=== PATIENT | female | born 1995 | race Two or more races ===

== ENCOUNTER 2017-04-30 12:17 | Emergency (ER) | payer SELFPAY ==
[~2017-04-30] VITALS: Ht 167.6 cm; Wt 61.4 kg
[2017-04-30] MEDS ORDERED: IBUPROFEN 800 MG TABLET PO ONE (12:45)
[2017-04-30 13:36] VITALS: BP 125/65
[2017-04-30 13:54] LABS: INFLUENZA TYPE B NEGATIVE FOR TYPE B (NEGATIVE)
== END 2017-04-30 14:17 | disposition home or self-care (01) ==
LOC: EMS 12:18
DX: B34.9 Viral infection, unspecified (principal); R51 Headache; F32.9 Major depressive disorder, single episode, unspecified
CPT/HCPCS: 71020; 81025; 87430; 87804; 99285

== ENCOUNTER 2017-08-11 22:27 | Emergency (ER) | payer OTHER ==
[~2017-08-11] VITALS: Ht 167.6 cm; Wt 59.1 kg
[2017-08-11] MEDS ORDERED: RISP1 PO (22:56)
[2017-08-11 23:47] VITALS: BP 111/71
== END 2017-08-12 00:04 | disposition home or self-care (01) ==
LOC: EMS 22:28
DX: Z00.8 Encounter for other general examination (principal); F32.9 Major depressive disorder, single episode, unspecified; F20.9 Schizophrenia, unspecified
CPT/HCPCS: 99285

== ENCOUNTER 2018-05-20 20:38 | Inpatient (IN) | payer MEDICAID, OTHER ==
[~2018-05-20] VITALS: Ht 167.6 cm; Wt 61.3 kg
[~2018-05-20 20:38] MED LIST: RISP1 PO
[2018-05-21] MEDS ORDERED: HALOPERIDOL 5 MG TABLET PO ONE (01:00)
[2018-05-21] MEDS ORDERED: LORazepam 1 MG TABLET PO ONE (01:00)
[2018-05-21] MEDS ORDERED: DiphenhydrAMINE HCL 25 MG/10 ML ELIXIR UDCUP PO ONE (01:00)
[2018-05-21] MEDS ORDERED: LORazepam 2 MG TABLET PO PRN ×2 (01:15→13:45)
[2018-05-21] MEDS ORDERED: ZOLPIDEM TARTRATE 10 MG TABLET PO PRN ×2 (01:15→13:45)
[2018-05-21] MEDS ORDERED: HALOPERIDOL 5 MG TABLET PO PRN (01:15)
[2018-05-21] MEDS ORDERED: MAGNESIUM HYDROXIDE SUSPENSION 30 ML UDCUP PO PRN (13:45)
[2018-05-21] MEDS ORDERED: PALIPERIDONE PALMITATE 234 MG/1.5 ML SYRINGE IM ONE (13:45)
[2018-05-21] MEDS ORDERED: MAG HYDROX/AL HYDROX/SIMETH ES 30 ML SUSPENSION UDCUP PO PRN (13:45)
[2018-05-21] MEDS ORDERED: PALIPERIDONE 1.5 MG ER TABLET PO PRN (13:45)
[2018-05-21] MEDS ORDERED: TUBERCULIN, PURIFIED PROTEIN DERIVATIVE 5 TU/0.1 ML SYG ID ONE (13:45)
[2018-05-21] MEDS ORDERED: OLANZapine 5 MG RAPDIS TABLET PO PRN (13:45)
[2018-05-21] MEDS ORDERED: LOPERAMIDE HCL 2 MG CAPSULE PO PRN (13:45)
[2018-05-21] MEDS ORDERED: HydrOXYzine PAMOATE 50 MG CAPSULE PO PRN (13:45)
[2018-05-21] MEDS ORDERED: GuaiFENesin/D-METHORPHAN [SUGAR-FREE] 200-20MG/10 ML SYRUP UDCUP PO PRN (13:45)
[2018-05-21] MEDS ORDERED: PROMETHAZINE HCL 25 MG TABLET PO PRN (13:45)
[2018-05-21] MEDS ORDERED: ACETAMINOPHEN 325 MG TABLET PO PRN (13:45)
[2018-05-21 17:41] VITALS: BP 100/69
[2018-05-21] MEDS ORDERED: OLANZapine 5 MG RAPDIS TABLET PO SCH (21:00)
[2018-05-21] MEDS ORDERED: PALIPERIDONE 3 MG ER TABLET PO SCH (21:00)
[2018-05-21] MEDS: THIAMINE HCL 100 MG TABLET PO SCH (21:55)
[2018-05-22 05:41] VITALS: BP 110/60
[2018-05-22 08:21] VITALS: BP 110/69
[2018-05-22] MEDS: THIAMINE HCL 100 MG TABLET PO SCH ×2 (09:00→17:00)
[2018-05-22] MEDS: FOLIC ACID 1 MG TABLET PO SCH (09:00)
[2018-05-22] MEDS: MULTIVITAMINS WITH MINERALS, THERAPEUTIC TABLET PO SCH (09:00)
[2018-05-22 17:15] VITALS: BP 101/64
[2018-05-23 05:47] VITALS: BP 108/72
[2018-05-23 08:22] VITALS: BP 106/70
[2018-05-23] MEDS: MULTIVITAMINS WITH MINERALS, THERAPEUTIC TABLET PO SCH (09:25)
[2018-05-23] MEDS: FOLIC ACID 1 MG TABLET PO SCH (09:25)
[2018-05-23] MEDS: THIAMINE HCL 100 MG TABLET PO SCH ×2 (09:25→17:14)
[2018-05-23 17:07] VITALS: BP 110/65
[2018-05-24 08:02] VITALS: BP 119/60
[2018-05-24 08:45] VITALS: BP 106/62
[2018-05-24] MEDS ORDERED: DiphenhydrAMINE HCL 50 MG/ML VIAL IM ONE (08:45)
[2018-05-24] MEDS: MULTIVITAMINS WITH MINERALS, THERAPEUTIC TABLET PO SCH (09:00)
[2018-05-24] MEDS: THIAMINE HCL 100 MG TABLET PO SCH ×2 (09:00→18:12)
[2018-05-24] MEDS: FOLIC ACID 1 MG TABLET PO SCH (09:00)
[2018-05-24 09:02] VITALS: BP 109/66
[2018-05-24 16:05] VITALS: BP 100/61
[2018-05-25 05:36] VITALS: BP 107/65
[2018-05-25 07:55] LABS: BASOPHILS % (AUTO) 0.3 % (0.0-2.0); EOSINOPHILS % (AUTO) 0.2 % (1.0-6.0); HEMATOCRIT 36.5 % (36-46); HEMOGLOBIN 12.2 g/dL (12.0-16.0); LYMPHOCYTES # (AUTO) 1.7 K/uL (1.0-4.8); LYMPHOCYTES % (AUTO) 13.3 % (22.0-44.0); MEAN CORPUSCULAR HEMOGLOBIN 27.3 pg (26.0-34.0); MEAN CORPUSCULAR HGB CONC 33.4 G/dL (31.0-37.0); MEAN CORPUSCULAR VOLUME 82 fL (80-100); MONOCYTES # (AUTO) 1.2 K/uL (0.1-1.0); MONOCYTES % (AUTO) 9.3 % (2.0-9.0); NEUTROPHILS % (AUTO) 76.9 % (40.0-70.0); PLATELET COUNT (AUTO) 265 K/uL (150-450); RED BLOOD CELL COUNT(AUTO) 4.46 MIL/uL (4.00-5.20)
[2018-05-25 08:08] LABS: HEMOGLOBIN A1C 5.3 % (4.5-6.2)
[2018-05-25] MEDS: THIAMINE HCL 100 MG TABLET PO SCH ×2 (08:22→16:44)
[2018-05-25] MEDS: MULTIVITAMINS WITH MINERALS, THERAPEUTIC TABLET PO SCH (08:22)
[2018-05-25] MEDS: FOLIC ACID 1 MG TABLET PO SCH (08:22)
[2018-05-25 08:35] LABS: ALANINE AMINOTRANSFERASE 29 U/L (12-78); ALBUMIN 3.3 g/dL (3.4-5.0); ALKALINE PHOSPHATASE 86 U/L (46-116); ANION GAP 4 mmol/L (8-16); ASPARTATE AMINOTRANSFERASE 20 U/L (15-37); BILIRUBIN,TOTAL 0.4 mg/dL (0.1-1.0); CALCIUM, TOTAL 8.6 mg/dL (8.8-10.5); CARBON DIOXIDE 30 mmol/L (22-29); CHLORIDE 106 mmol/L (98-107); CHOL/HDL RATIO 2.1 (3.9-5.7); CHOLESTEROL 144 mg/dL (131-200); CREATININE 0.45 mg/dL (0.60-1.30); FREE T4 (FREE THYROXINE) 0.78 ng/dL (0.76-1.46); GLOMERULAR FILTR. RATE CALC > 60 mL/min (>60); GLUCOSE,RANDOM 96 mg/dL (70-110); HCG,QUANTITATIVE < 1 mIU/mL (0-6); HDL CHOLESTEROL 70 mg/dL (40-60); LDL CHOL (CALC.) 69 mg/dL (0-130); POTASSIUM 3.8 mmol/L (3.5-5.1); SODIUM SERUM 140 mmol/L (136-145); THYROID STIMULATING HORMONE 0.57 uIU/mL (0.36-3.74); TOTAL PROTEIN, SERUM 6.8 g/dL (6.4-8.2); TRIGLYCERIDES 27 mg/dL (15-150); UREA NITROGEN, BLOOD 12 mg/dL (7-18)
[2018-05-25 08:39] VITALS: BP 110/60
[2018-05-25] MEDS ORDERED: PALIPERIDONE PALMITATE 156 MG/ML SYRINGE IM ONE (09:00)
[2018-05-25 16:24] VITALS: BP 103/60
[2018-05-26 00:39] VITALS: BP 110/68
[2018-05-26] MEDS: FOLIC ACID 1 MG TABLET PO SCH (08:23)
[2018-05-26] MEDS: THIAMINE HCL 100 MG TABLET PO SCH ×2 (08:23→16:35)
[2018-05-26] MEDS: MULTIVITAMINS WITH MINERALS, THERAPEUTIC TABLET PO SCH (08:23)
[2018-05-26] MEDS: RisperiDONE 0.5 MG TABLET PO SCH ×2 (08:23→16:35)
[2018-05-26 08:26] VITALS: BP 113/90
[2018-05-26 17:34] VITALS: BP 103/68
[2018-05-27 06:13] VITALS: BP 104/72
[2018-05-27 08:00] VITALS: BP 126/76
[2018-05-27] MEDS: THIAMINE HCL 100 MG TABLET PO SCH ×2 (08:28→16:36)
[2018-05-27] MEDS: MULTIVITAMINS WITH MINERALS, THERAPEUTIC TABLET PO SCH (08:28)
[2018-05-27] MEDS: FOLIC ACID 1 MG TABLET PO SCH (08:28)
[2018-05-27] MEDS: RisperiDONE 0.5 MG TABLET PO SCH (08:28)
[2018-05-27 16:32] VITALS: BP 107/54
[2018-05-27] MEDS: RisperiDONE 1 MG TABLET PO SCH (16:36)
[2018-05-28 06:11] VITALS: BP 118/69
[2018-05-28] MEDS: MULTIVITAMINS WITH MINERALS, THERAPEUTIC TABLET PO SCH (08:59)
[2018-05-28] MEDS: THIAMINE HCL 100 MG TABLET PO SCH (08:59)
[2018-05-28] MEDS: RisperiDONE 1 MG TABLET PO SCH ×2 (08:59→14:40)
[2018-05-28] MEDS: FOLIC ACID 1 MG TABLET PO SCH (08:59)
[2018-05-28 09:14] VITALS: BP 109/61
[2018-05-28] MEDS ORDERED: RISP1 PO (15:35)
[2018-05-28 16:27] VITALS: BP 124/75
== END 2018-05-28 18:50 | disposition home or self-care (01) | DRG 750 ==
LOC: EMS 20:38 → B3A 05-21 14:49
PROVIDERS: ADMIT Psychiatry & Neurology Psychiatry; ATTEND Psychiatry & Neurology Psychiatry
DX: F25.1 Schizoaffective disorder, depressive type (principal); R45.851 Suicidal ideations; Z59.0 Homelessness; D64.9 Anemia, unspecified; F43.10 Post-traumatic stress disorder, unspecified; Z91.19 Patient's noncompliance with other medical treatment and regimen
CPT/HCPCS: 80074; 83036; 83735; 84439; 84443; 86592; 86804; 90686; J1200

== ENCOUNTER 2018-06-06 05:28 | Inpatient (IN) | payer MEDICAID, OTHER ==
[~2018-06-06] VITALS: Ht 167.6 cm; Wt 74.4 kg
[2018-06-06 08:47] LABS: AMPHET/METH SCREEN,URINE NEGATIVE (NEGATIVE); BARBITURATE SCREEN, URINE NEGATIVE (NEGATIVE); BENZODIAZEPINES SCREEN,URINE NEGATIVE (NEGATIVE); CANNABINOID SCREEN,URINE NEGATIVE (NEGATIVE); COCAINE SCREEN,URINE NEGATIVE (NEGATIVE); METHADONE SCREEN, URINE NEGATIVE (NEGATIVE); OPIATE SCREEN,URINE NEGATIVE (NEGATIVE); PHENCYCLIDINE SCREEN,URINE NEGATIVE (NEGATIVE)
[2018-06-06 13:37] VITALS: BP 130/71
[2018-06-06] MEDS: OLANZapine 10 MG RAPDIS TABLET PO SCH (14:08)
[2018-06-06] MEDS ORDERED: ALBUTEROL SULFATE HFA 90 MCG/PUFF 8 GM INHALER IH PRN (14:45)
[2018-06-06] MEDS ORDERED: NICOTINE 14 MG/24 HOUR PATCH TD PRN (14:45)
[2018-06-06] MEDS ORDERED: DOCUSATE SODIUM 100 MG CAPSULE PO PRN (14:45)
[2018-06-06] MEDS ORDERED: ONDANSETRON HCL 4 MG TABLET PO PRN (14:45)
[2018-06-06] MEDS ORDERED: IBUPROFEN 400 MG TABLET PO PRN (14:45)
[2018-06-06] MEDS ORDERED: PETROLATUM,WHITE 28 GM JELLY TP PRN (14:45)
[2018-06-06] MEDS ORDERED: MAGNESIUM HYDROXIDE SUSPENSION 30 ML UDCUP PO PRN (14:45)
[2018-06-06] MEDS ORDERED: MAG HYDROX/AL HYDROX/SIMETH ES 30 ML SUSPENSION UDCUP PO PRN (14:45)
[2018-06-06] MEDS ORDERED: GuaiFENesin/D-METHORPHAN [SUGAR-FREE] 200-20MG/10 ML SYRUP UDCUP PO PRN (14:45)
[2018-06-06] MEDS ORDERED: LOPERAMIDE HCL 2 MG CAPSULE PO PRN (14:45)
[2018-06-06] MEDS ORDERED: CloNIDine HCL 0.1 MG TABLET PO PRN (14:45)
[2018-06-06 17:43] VITALS: BP 102/63
[2018-06-07] MEDS: OLANZapine 10 MG RAPDIS TABLET PO SCH (08:01)
[2018-06-07] MEDS ORDERED: LORazepam 2 MG/ML VIAL ONE (09:05)
[2018-06-07] MEDS ORDERED: HALOPERIDOL LACTATE 5 MG/ML VIAL ONE (09:05)
[2018-06-07] MEDS ORDERED: DiphenhydrAMINE HCL 50 MG/ML VIAL ONE (09:05)
[2018-06-07] MEDS ORDERED: HALOPERIDOL LACTATE 5 MG/ML VIAL IM ONE (09:15)
[2018-06-07] MEDS ORDERED: LORazepam 2 MG/ML VIAL IM ONE (09:15)
[2018-06-07] MEDS ORDERED: DiphenhydrAMINE HCL 50 MG/ML VIAL IM ONE (09:15)
[2018-06-07 09:19] VITALS: BP 109/69
[2018-06-07 19:25] VITALS: BP 113/72
[2018-06-08] MEDS: OLANZapine 10 MG RAPDIS TABLET PO SCH (09:45)
[2018-06-08 10:32] VITALS: BP 105/56
[2018-06-08 19:41] VITALS: BP 110/70
[2018-06-09 08:00] VITALS: BP 118/59
[2018-06-09] MEDS: OLANZapine 10 MG RAPDIS TABLET PO SCH (08:38)
[2018-06-09] MEDS: LORazepam 2 MG TABLET PO PRN (17:07)
[2018-06-09] MEDS: HALOPERIDOL 5 MG TABLET PO PRN (17:07)
[2018-06-09 20:51] VITALS: BP 124/68
[2018-06-10] MEDS: LORazepam 2 MG TABLET PO PRN (07:47)
[2018-06-10] MEDS: HALOPERIDOL 5 MG TABLET PO PRN (07:47)
[2018-06-10] MEDS: OLANZapine 10 MG RAPDIS TABLET PO SCH (07:47)
[2018-06-10 09:13] VITALS: BP 104/78
[2018-06-10 19:18] VITALS: BP 100/57
[2018-06-11] MEDS: HALOPERIDOL 5 MG TABLET PO PRN ×3 (02:46→14:47)
[2018-06-11 03:00] VITALS: BP 106/64
[2018-06-11 08:00] VITALS: BP 116/57
[2018-06-11] MEDS: LORazepam 2 MG TABLET PO PRN ×2 (08:51→14:47)
[2018-06-11] MEDS: OLANZapine 10 MG RAPDIS TABLET PO SCH (08:51)
[2018-06-11] MEDS: ACETAMINOPHEN 325 MG TABLET PO PRN ×2 (14:39→14:48)
[2018-06-12] MEDS: LORazepam 2 MG TABLET PO PRN ×3 (02:47→13:07)
[2018-06-12] MEDS: ZOLPIDEM TARTRATE 10 MG TABLET PO PRN (02:47)
[2018-06-12 02:50] VITALS: BP 127/80
[2018-06-12 08:00] VITALS: BP 130/75
[2018-06-12] MEDS: HALOPERIDOL 5 MG TABLET PO PRN (08:24)
[2018-06-12] MEDS: OLANZapine 10 MG RAPDIS TABLET PO SCH ×3 (08:24→16:27)
[2018-06-13] MEDS: OLANZapine 10 MG RAPDIS TABLET PO SCH ×2 (08:30→16:12)
[2018-06-13 09:00] VITALS: BP 116/71
[2018-06-14 08:28] VITALS: BP 142/81
[2018-06-14] MEDS: HALOPERIDOL 5 MG TABLET PO PRN (08:58)
[2018-06-14] MEDS: OLANZapine 10 MG RAPDIS TABLET PO SCH ×2 (08:58→16:24)
[2018-06-14] MEDS: LORazepam 2 MG TABLET PO PRN (08:58)
[2018-06-15] MEDS: OLANZapine 10 MG RAPDIS TABLET PO SCH ×2 (08:10→16:36)
[2018-06-15] MEDS: LORazepam 2 MG TABLET PO PRN (08:10)
[2018-06-15 08:38] VITALS: BP 136/80
[2018-06-15 13:57] VITALS: BP 135/76
[2018-06-15] MEDS ORDERED: BENZOCAINE 10% 7 GM GEL TP PRN (14:30)
[2018-06-15 16:58] VITALS: BP 107/71
[2018-06-16] MEDS: OLANZapine 10 MG RAPDIS TABLET PO SCH ×2 (08:59→16:31)
[2018-06-16 09:20] VITALS: BP 108/58
[2018-06-17] MEDS: LORazepam 2 MG TABLET PO PRN (07:51)
[2018-06-17] MEDS: OLANZapine 10 MG RAPDIS TABLET PO SCH ×2 (07:51→16:13)
[2018-06-17 09:25] VITALS: BP 112/70
[2018-06-18 04:55] VITALS: BP 101/79
[2018-06-18] MEDS: OLANZapine 10 MG RAPDIS TABLET PO SCH (08:59)
[2018-06-18 09:00] VITALS: BP 141/71
[2018-06-18 17:13] VITALS: BP 109/67
[2018-06-18] MEDS: OLANZapine 10 MG TABLET PO SCH (20:29)
[2018-06-19] MEDS: LORazepam 2 MG TABLET PO PRN ×2 (00:29→08:00)
[2018-06-19] MEDS: ZOLPIDEM TARTRATE 10 MG TABLET PO PRN (00:29)
[2018-06-19] MEDS: OLANZapine 10 MG TABLET PO SCH ×2 (08:00→20:41)
[2018-06-19 11:01] VITALS: BP 108/66
[2018-06-19 17:26] VITALS: BP 104/80
[2018-06-20] MEDS: LORazepam 2 MG TABLET PO PRN ×2 (08:03→13:02)
[2018-06-20] MEDS: OLANZapine 10 MG TABLET PO SCH ×2 (08:03→21:07)
[2018-06-20 08:37] VITALS: BP 140/81
[2018-06-20] MEDS: HALOPERIDOL 5 MG TABLET PO PRN (13:02)
[2018-06-20] MEDS: FLUoxetine HCL 10 MG CAPSULE PO SCH (14:32)
[2018-06-20 16:13] VITALS: BP 134/78
[2018-06-21 08:00] VITALS: BP 132/66
[2018-06-21] MEDS: OLANZapine 10 MG TABLET PO SCH ×2 (08:03→20:13)
[2018-06-21] MEDS: FLUoxetine HCL 10 MG CAPSULE PO SCH (08:03)
[2018-06-21] MEDS: LORazepam 2 MG TABLET PO PRN (08:03)
[2018-06-21 19:04] VITALS: BP 131/74
[2018-06-22] MEDS: OLANZapine 10 MG TABLET PO SCH ×2 (08:15→20:17)
[2018-06-22] MEDS: FLUoxetine HCL 10 MG CAPSULE PO SCH (08:15)
[2018-06-22 09:00] VITALS: BP 115/97
[2018-06-22 17:24] VITALS: BP 102/63
[2018-06-23] MEDS: OLANZapine 10 MG TABLET PO SCH ×2 (08:53→20:13)
[2018-06-23] MEDS: FLUoxetine HCL 10 MG CAPSULE PO SCH (08:54)
[2018-06-23 09:00] VITALS: BP 123/59
[2018-06-23 17:35] VITALS: BP 103/59
[2018-06-24] MEDS: FLUoxetine HCL 10 MG CAPSULE PO SCH (08:05)
[2018-06-24] MEDS: OLANZapine 10 MG TABLET PO SCH ×2 (08:05→20:26)
[2018-06-24 10:03] VITALS: BP 121/82
[2018-06-24 16:57] VITALS: BP 103/62
[2018-06-25 08:00] VITALS: BP 115/67
[2018-06-25] MEDS: OLANZapine 10 MG TABLET PO SCH ×2 (08:38→20:28)
[2018-06-25] MEDS: FLUoxetine HCL 10 MG CAPSULE PO SCH (08:38)
[2018-06-25] MEDS ORDERED: TUBERCULIN, PURIFIED PROTEIN DERIVATIVE 5 TU/0.1 ML SYRINGE ID ONE (13:30)
[2018-06-26 08:00] VITALS: BP 101/67
[2018-06-26] MEDS: FLUoxetine HCL 10 MG CAPSULE PO SCH (08:29)
[2018-06-26] MEDS: OLANZapine 10 MG TABLET PO SCH ×2 (08:29→20:22)
[2018-06-27 08:00] VITALS: BP 119/78
[2018-06-27] MEDS: FLUoxetine HCL 10 MG CAPSULE PO SCH (08:24)
[2018-06-27] MEDS: OLANZapine 10 MG TABLET PO SCH ×2 (08:24→20:18)
[2018-06-28 08:00] VITALS: BP 113/75
[2018-06-28] MEDS: FLUoxetine HCL 10 MG CAPSULE PO SCH (11:41)
[2018-06-28] MEDS: OLANZapine 10 MG TABLET PO SCH ×2 (11:42→20:05)
[2018-06-28 18:26] VITALS: BP 120/81
[2018-06-29] MEDS: FLUoxetine HCL 10 MG CAPSULE PO SCH (08:37)
[2018-06-29] MEDS: OLANZapine 10 MG TABLET PO SCH ×2 (08:37→21:13)
[2018-06-29 10:01] VITALS: BP 120/87
[2018-06-29 18:02] VITALS: BP 118/67
[2018-06-30 06:24] VITALS: BP 110/71
[2018-06-30 09:05] VITALS: BP 112/81
[2018-06-30] MEDS: FLUoxetine HCL 10 MG CAPSULE PO SCH (10:04)
[2018-06-30] MEDS: OLANZapine 10 MG TABLET PO SCH ×2 (10:06→20:45)
[2018-06-30 17:04] VITALS: BP 129/65
[2018-07-01 08:00] VITALS: BP 125/79
[2018-07-01] MEDS: OLANZapine 10 MG TABLET PO SCH ×2 (09:11→20:35)
[2018-07-01] MEDS: FLUoxetine HCL 10 MG CAPSULE PO SCH (09:11)
[2018-07-01 19:58] VITALS: BP 123/83
[2018-07-02 08:02] VITALS: BP 117/76
[2018-07-02] MEDS: OLANZapine 10 MG TABLET PO SCH ×2 (09:17→21:21)
[2018-07-02] MEDS: FLUoxetine HCL 10 MG CAPSULE PO SCH (09:17)
[2018-07-02 16:45] VITALS: BP 100/60
[2018-07-03 08:35] VITALS: BP 104/64
[2018-07-03] MEDS: FLUoxetine HCL 10 MG CAPSULE PO SCH (08:49)
[2018-07-03] MEDS: OLANZapine 10 MG TABLET PO SCH ×2 (08:49→20:25)
[2018-07-03 19:27] VITALS: BP 114/66
[2018-07-04] MEDS: OLANZapine 10 MG TABLET PO SCH ×2 (08:46→20:26)
[2018-07-04] MEDS: FLUoxetine HCL 10 MG CAPSULE PO SCH (08:46)
[2018-07-04 09:12] VITALS: BP 106/66
[2018-07-04 17:06] VITALS: BP 105/61
[2018-07-05] MEDS: OLANZapine 10 MG TABLET PO SCH ×2 (07:51→21:04)
[2018-07-05] MEDS: FLUoxetine HCL 10 MG CAPSULE PO SCH (07:51)
[2018-07-05 09:30] VITALS: BP 119/74
[2018-07-05 16:00] VITALS: BP 100/60
[2018-07-06] MEDS: FLUoxetine HCL 10 MG CAPSULE PO SCH (07:48)
[2018-07-06] MEDS: OLANZapine 10 MG TABLET PO SCH ×2 (07:48→20:08)
[2018-07-06 12:59] VITALS: BP 104/63
[2018-07-06 17:56] VITALS: BP 107/67
[2018-07-07] MEDS: OLANZapine 10 MG TABLET PO SCH ×2 (07:54→20:45)
[2018-07-07] MEDS: FLUoxetine HCL 10 MG CAPSULE PO SCH (07:55)
[2018-07-07 09:02] VITALS: BP 102/59
[2018-07-08] MEDS: OLANZapine 10 MG TABLET PO SCH ×2 (08:15→21:05)
[2018-07-08] MEDS: FLUoxetine HCL 10 MG CAPSULE PO SCH (08:15)
[2018-07-08 08:34] VITALS: BP 105/68
[2018-07-08 16:10] VITALS: BP 100/73
[2018-07-08] MEDS: ZOLPIDEM TARTRATE 10 MG TABLET PO PRN (21:18)
[2018-07-09 08:00] VITALS: BP 102/63
[2018-07-09] MEDS: FLUoxetine HCL 10 MG CAPSULE PO SCH (09:23)
[2018-07-09] MEDS: OLANZapine 10 MG TABLET PO SCH ×2 (09:23→20:06)
[2018-07-09 16:42] VITALS: BP 124/60
[2018-07-10 08:00] VITALS: BP 111/58
[2018-07-10] MEDS: OLANZapine 10 MG TABLET PO SCH ×2 (09:26→20:49)
[2018-07-10] MEDS: FLUoxetine HCL 10 MG CAPSULE PO SCH (09:27)
[2018-07-10 16:53] VITALS: BP 104/58
[2018-07-11] MEDS: OLANZapine 10 MG TABLET PO SCH ×2 (08:26→22:00)
[2018-07-11] MEDS: FLUoxetine HCL 10 MG CAPSULE PO SCH (08:26)
[2018-07-11 08:35] VITALS: BP 113/75
[2018-07-11 17:00] VITALS: BP 106/62
[2018-07-12 08:48] VITALS: BP 121/70
[2018-07-12] MEDS: OLANZapine 10 MG TABLET PO SCH ×2 (09:59→20:08)
[2018-07-12] MEDS: FLUoxetine HCL 10 MG CAPSULE PO SCH (09:59)
[2018-07-12 16:15] VITALS: BP 110/69
[2018-07-13] MEDS: FLUoxetine HCL 10 MG CAPSULE PO SCH (08:28)
[2018-07-13] MEDS: OLANZapine 10 MG TABLET PO SCH ×2 (08:28→20:15)
[2018-07-13 09:26] VITALS: BP 142/79
[2018-07-13 16:51] VITALS: BP 119/69
[2018-07-14] MEDS: FLUoxetine HCL 10 MG CAPSULE PO SCH (07:37)
[2018-07-14] MEDS: OLANZapine 10 MG TABLET PO SCH ×2 (07:38→20:06)
[2018-07-14 08:00] VITALS: BP 104/62
[2018-07-14 16:37] VITALS: BP 114/61
[2018-07-15] MEDS: OLANZapine 10 MG TABLET PO SCH ×2 (08:13→20:18)
[2018-07-15] MEDS: FLUoxetine HCL 10 MG CAPSULE PO SCH (08:13)
[2018-07-15 08:30] VITALS: BP 107/66
[2018-07-15 21:10] VITALS: BP 101/62
[2018-07-16 08:00] VITALS: BP 109/71
[2018-07-16] MEDS: OLANZapine 10 MG TABLET PO SCH ×2 (08:00→20:47)
[2018-07-16] MEDS: FLUoxetine HCL 10 MG CAPSULE PO SCH (08:00)
[2018-07-16 16:00] VITALS: BP 107/63
[2018-07-17] MEDS: FLUoxetine HCL 10 MG CAPSULE PO SCH (07:45)
[2018-07-17] MEDS: OLANZapine 10 MG TABLET PO SCH ×2 (07:45→20:19)
[2018-07-17 08:26] VITALS: BP 102/61
[2018-07-17 16:00] VITALS: BP 116/74
[2018-07-18 08:51] VITALS: BP 111/75
[2018-07-18] MEDS: FLUoxetine HCL 10 MG CAPSULE PO SCH (09:11)
[2018-07-18] MEDS: OLANZapine 10 MG TABLET PO SCH ×2 (09:11→20:35)
[2018-07-18 16:12] VITALS: BP 103/66
[2018-07-19 08:19] VITALS: BP 112/64
[2018-07-19] MEDS: FLUoxetine HCL 10 MG CAPSULE PO SCH (08:22)
[2018-07-19] MEDS: OLANZapine 10 MG TABLET PO SCH ×2 (08:22→20:12)
[2018-07-20 08:10] VITALS: BP 102/60
[2018-07-20] MEDS: OLANZapine 10 MG TABLET PO SCH ×2 (09:53→20:27)
[2018-07-20] MEDS: FLUoxetine HCL 10 MG CAPSULE PO SCH (09:53)
[2018-07-20 17:33] VITALS: BP 121/76
[2018-07-21 08:35] VITALS: BP 96/64
[2018-07-21] MEDS: FLUoxetine HCL 10 MG CAPSULE PO SCH (09:00)
[2018-07-21] MEDS: OLANZapine 10 MG TABLET PO SCH ×2 (09:00→20:31)
[2018-07-21 17:39] VITALS: BP 121/81
[2018-07-22 08:00] VITALS: BP 108/67
[2018-07-22] MEDS: FLUoxetine HCL 10 MG CAPSULE PO SCH (10:22)
[2018-07-22] MEDS: OLANZapine 10 MG TABLET PO SCH ×2 (10:23→20:42)
[2018-07-22 16:45] VITALS: BP 114/67
[2018-07-23 08:00] VITALS: BP 123/70
[2018-07-23] MEDS: FLUoxetine HCL 10 MG CAPSULE PO SCH (08:38)
[2018-07-23] MEDS: OLANZapine 10 MG TABLET PO SCH ×2 (08:38→20:48)
[2018-07-23 16:00] VITALS: BP 121/78
[2018-07-24] MEDS: FLUoxetine HCL 10 MG CAPSULE PO SCH (08:24)
[2018-07-24] MEDS: OLANZapine 10 MG TABLET PO SCH ×2 (08:24→21:08)
[2018-07-24 09:23] VITALS: BP 108/89
[2018-07-24 21:43] VITALS: BP 125/75
[2018-07-25 08:00] VITALS: BP 119/74
[2018-07-25] MEDS: OLANZapine 10 MG TABLET PO SCH ×2 (08:50→20:03)
[2018-07-25] MEDS: FLUoxetine HCL 10 MG CAPSULE PO SCH (08:50)
[2018-07-25 18:20] VITALS: BP 124/77
[2018-07-26 08:00] VITALS: BP 105/72
[2018-07-26] MEDS: FLUoxetine HCL 10 MG CAPSULE PO SCH (10:09)
[2018-07-26] MEDS: OLANZapine 10 MG TABLET PO SCH ×2 (10:09→20:01)
[2018-07-26 18:26] VITALS: BP 111/63
[2018-07-27 08:30] VITALS: BP 114/70
[2018-07-27] MEDS: FLUoxetine HCL 10 MG CAPSULE PO SCH (09:08)
[2018-07-27] MEDS: OLANZapine 10 MG TABLET PO SCH ×2 (09:08→20:06)
[2018-07-27 17:06] VITALS: BP 124/78
[2018-07-27] MEDS: ZOLPIDEM TARTRATE 10 MG TABLET PO PRN (20:34)
[2018-07-28 08:58] VITALS: BP 118/70
[2018-07-28] MEDS: OLANZapine 10 MG TABLET PO SCH ×2 (09:13→21:24)
[2018-07-28] MEDS: FLUoxetine HCL 10 MG CAPSULE PO SCH (09:13)
[2018-07-28 16:36] VITALS: BP 110/62
[2018-07-28] MEDS: ZOLPIDEM TARTRATE 10 MG TABLET PO PRN (21:31)
[2018-07-29 08:00] VITALS: BP 111/61
[2018-07-29] MEDS: FLUoxetine HCL 10 MG CAPSULE PO SCH (08:07)
[2018-07-29] MEDS: OLANZapine 10 MG TABLET PO SCH ×2 (08:07→20:22)
[2018-07-29 16:44] VITALS: BP 111/68
[2018-07-30 08:00] VITALS: BP 98/55
[2018-07-30] MEDS: OLANZapine 10 MG TABLET PO SCH ×2 (09:15→20:11)
[2018-07-30] MEDS: FLUoxetine HCL 10 MG CAPSULE PO SCH (09:15)
[2018-07-30 16:00] VITALS: BP 108/65
[2018-07-31 08:00] VITALS: BP 103/64
[2018-07-31] MEDS: FLUoxetine HCL 10 MG CAPSULE PO SCH (08:40)
[2018-07-31] MEDS: OLANZapine 10 MG TABLET PO SCH ×2 (08:40→20:23)
[2018-07-31 21:30] VITALS: BP 102/66
[2018-08-01 08:00] VITALS: BP 104/60
[2018-08-01] MEDS: OLANZapine 10 MG TABLET PO SCH ×2 (08:29→20:25)
[2018-08-01] MEDS: FLUoxetine HCL 10 MG CAPSULE PO SCH (08:29)
[2018-08-01 16:56] VITALS: BP 120/71
[2018-08-02 08:00] VITALS: BP 130/71
[2018-08-02] MEDS: OLANZapine 10 MG TABLET PO SCH ×2 (08:53→20:23)
[2018-08-02] MEDS: FLUoxetine HCL 10 MG CAPSULE PO SCH (08:53)
[2018-08-02 16:30] VITALS: BP 122/79
[2018-08-02] MEDS: ZOLPIDEM TARTRATE 10 MG TABLET PO PRN (22:20)
[2018-08-03 02:30] VITALS: BP 136/64
[2018-08-03] MEDS: FLUoxetine HCL 10 MG CAPSULE PO SCH (09:08)
[2018-08-03] MEDS: OLANZapine 10 MG TABLET PO SCH ×2 (09:08→20:40)
[2018-08-03 09:30] VITALS: BP 110/65
[2018-08-03 16:25] VITALS: BP 100/52
[2018-08-03] MEDS: ZOLPIDEM TARTRATE 10 MG TABLET PO PRN (20:41)
[2018-08-04 00:29] VITALS: BP 110/68
[2018-08-04 00:30] VITALS: BP 135/76
[2018-08-04 09:04] VITALS: BP 114/72
[2018-08-04] MEDS: FLUoxetine HCL 10 MG CAPSULE PO SCH (09:17)
[2018-08-04] MEDS: OLANZapine 10 MG TABLET PO SCH ×2 (09:17→20:35)
[2018-08-04 17:36] VITALS: BP 115/70
[2018-08-05 00:06] VITALS: BP 111/64
[2018-08-05 08:00] VITALS: BP 117/58
[2018-08-05] MEDS ORDERED: OLAN10TA3 PO (08:07)
[2018-08-05] MEDS ORDERED: PROZ10 PO (08:07)
[2018-08-05] MEDS: OLANZapine 10 MG TABLET PO SCH ×2 (09:37→21:02)
[2018-08-05] MEDS: FLUoxetine HCL 10 MG CAPSULE PO SCH (09:37)
[2018-08-05 16:10] VITALS: BP 111/69
[2018-08-06 03:03] VITALS: BP 110/68
[2018-08-06] MEDS: FLUoxetine HCL 10 MG CAPSULE PO SCH (07:53)
[2018-08-06] MEDS: LORazepam 2 MG TABLET PO PRN (07:53)
[2018-08-06] MEDS: OLANZapine 10 MG TABLET PO SCH (07:53)
[2018-08-06 08:51] VITALS: BP 106/61
[2018-08-06 16:14] VITALS: BP 107/68
== END 2018-08-06 16:00 | disposition short-term general hospital (02) | DRG 750 ==
LOC: EMS 05:29 → 3EI 11:02 → 3EC 06-07 10:03 → B2S 08-03 01:45
PROVIDERS: ADMIT Psychiatry & Neurology Child & Adolescent Psychiatry; ATTEND Psychiatry & Neurology Child & Adolescent Psychiatry
DX: F20.9 Schizophrenia, unspecified (principal); R45.851 Suicidal ideations; F43.10 Post-traumatic stress disorder, unspecified; G47.00 Insomnia, unspecified; K59.00 Constipation, unspecified; R76.11 Nonspecific reaction to tuberculin skin test without active tuberculosis; Z53.20 Procedure and treatment not carried out because of patient's decision for unspecified reasons; R00.0 Tachycardia, unspecified; Z79.899 Other long term (current) drug therapy
CPT/HCPCS: 87081; J1200; J1630; J2060